=== PATIENT | male | born 1950 | race African-American/Black ===

== ENCOUNTER 2019-09-06 18:57 | Emergency (ER) | payer OTHER ==
[~2019-09-06] VITALS: Ht 154.9 cm; Wt 81.6 kg
[2019-09-06 19:00] VITALS: BP 175/100
[2019-09-06] MEDS ORDERED: MECLIZINE 25 MG TAB PO ONE (20:25)
[2019-09-06 22:54] VITALS: BP 176/88
== END 2019-09-06 22:54 | disposition home or self-care (01) ==
LOC: MED 18:57
DX: R42 Dizziness and giddiness (principal); I10 Essential (primary) hypertension; Z88.5 Allergy status to narcotic agent
CPT/HCPCS: 99283; J8597

== ENCOUNTER 2021-01-23 20:58 | Emergency (ER) | payer BC, OTHER, SELFPAY ==
[~2021-01-23] VITALS: Ht 180.3 cm; Wt 81.6 kg
[2021-01-23 21:10] VITALS: BP 134/93
--- NOTE | 2021-01-23 21:10 | NUR ---
TO BED AMBULATORY
--- NOTE | 2021-01-23 21:24 | NUR ---
Said examining patient.
--- NOTE | 2021-01-23 21:27 | NUR ---
SEE COMPLETE ASSESSMENT MED: ASA 81 MG; ATORVASTATIN 40 MG; CARVEDILOL 3.125; FUROSEMIDE 20 MG; ISOSORBIDE MONONITRATE 30MG; POTASSIUM CHLORIDE 20 MEQ; SACUBITRIL VALSATRAN 24MG-26MG; TICAGRELOR 90 MG ORAL; ZOLPIDEM 5 MG; hX; CHF; BILATERAL KNEE/ REPLACEMENT; STENTS 2020
[2021-01-23] MEDS ORDERED: FUROSEMIDE 40 MG/4 ML VIAL IVP SCH (21:30)
[2021-01-23 22:15] LABS: BASOPHILS # (AUTO) 0.2 K/uL (0.00-0.22); BASOPHILS % (AUTO) 3.5 % (0.0-2.0); EOSINOPHILS # (AUTO) 0.1 K/uL (0-0.4); EOSINOPHILS % (AUTO) 1.5 % (0.0-4.0); HEMATOCRIT 31.8 % (36-52); HEMOGLOBIN 10.3 g/dL (12.0-18.0); LYMPHOCYTES # (AUTO) 0.4 K/uL (2.0-11.5); LYMPHOCYTES % (AUTO) 9.4 % (20.5-51.1); MEAN CORPUSCULAR HEMOGLOBIN 27 pg (27-31); MEAN CORPUSCULAR HGB CONC 33 g/dL (33-37); MEAN CORPUSCULAR VOLUME 83.7 fL (80-94); MONOCYTES # (AUTO) 0.3 K/uL (0.8-1.0); MONOCYTES % (AUTO) 6.7 % (1.7-9.3); NEUTROPHILS # (AUTO) 3.6 K/uL (1.8-7.7); NEUTROPHILS % (AUTO) 78.9 % (42.2-75.2); PLATELET COUNT (AUTO) 213 K/uL (140-450); RED CELL DISTRIBUTION WIDTH 16.6 % (11.6-13.7); WHITE BLOOD COUNT (AUTO) 4.6 K/uL (4.8-10.8)
[2021-01-23 22:33] LABS: ALBUMIN 3.3 g/dL (3.4-5.0); ANION GAP 15.3 (8-16); ASPARTATE AMINOTRANSFERASE 22 U/L (15-37); CARBON DIOXIDE 25.8 mmol/L (21-32); CHLORIDE 107 mmol/L (98-107); CREATININE 1.8 mg/dL (0.6-1.3); GLUCOSE 112 mg/dL (74-106); POTASSIUM 4.1 mmol/L (3.5-5.1); SODIUM SERUM 144 mmol/L (136-145); TOTAL BILIRUBIN 1.2 mg/dL (0.0-1.0); UREA NITROGEN, BLOOD 27 mg/dL (7-18)
--- NOTE | 2021-01-23 22:40 | NUR ---
PATIENT SITTING IN BED QUIETLY. VSS. WILL CONTINUE TO MONITOR.
--- NOTE | 2021-01-23 22:40 | NUR ---
100 ML URINE OUTPUT
--- NOTE | 2021-01-23 22:51 | NUR ---
DR. SMITH AT BEDSIDE.
[2021-01-23 23:07] VITALS: BP 101/68
--- NOTE | 2021-01-23 23:07 | NUR ---
Patient discharged with v/s stable. Written and verbal after care instructions given and explained. Patient verbalized understanding. Ambulatory with steady gait. All questions addressed prior to discharge. Advised to follow up with PMD.
== END 2021-01-23 23:07 | disposition home or self-care (01) ==
LOC: MED 20:58
DX: I50.9 Heart failure, unspecified (principal); I13.0 Hypertensive heart and chronic kidney disease with heart failure and stage 1 through stage 4 chronic kidney disease, or unspecified chronic kidney disease; N18.9 Chronic kidney disease, unspecified; I50.89 Other heart failure; D64.9 Anemia, unspecified; E80.7 Disorder of bilirubin metabolism, unspecified; J90 Pleural effusion, not elsewhere classified; Z88.5 Allergy status to narcotic agent
CPT/HCPCS: 36415; 71045; 80053; 83880; 84484; 85025; 93005; 96374; 99285; J1940

== ENCOUNTER 2021-04-09 03:54 | Emergency (ER) | payer BC, OTHER ==
[~2021-04-09] VITALS: Ht 180.3 cm; Wt 81.6 kg
[2021-04-09 04:01] VITALS: BP 109/73
--- NOTE | 2021-04-09 04:02 | NUR ---
Dr. Haro examining patient.
[2021-04-09] MEDS ORDERED: ZOLP5TAB1 PO ×2 (04:09→04:10)
--- NOTE | 2021-04-09 04:20 | NUR ---
ERMD EVALUATED PATIENT PATIENT IN TRIAGE, NO NURSING INTERVENTIONS NEEDED AT THIS TIME.
[2021-04-09 04:35] VITALS: BP 109/73
--- NOTE | 2021-04-09 04:35 | NUR ---
Patient discharged with v/s stable. Written and verbal after care instructions given and explained. Patient alert, oriented and verbalized understanding of instructions. Ambulatory with steady gait. All questions addressed prior to discharge. ID band removed. Patient advised to follow up with PMD. Rx of PERFECTO given. Patient educated on indication of medication including possible reaction and side effects. Opportunity to ask questions provided and answered.
== END 2021-04-09 04:35 | disposition home or self-care (01) ==
LOC: MED 03:54
DX: G47.00 Insomnia, unspecified (principal); I10 Essential (primary) hypertension; Z79.899 Other long term (current) drug therapy; Z88.5 Allergy status to narcotic agent
CPT/HCPCS: 99283

== ENCOUNTER 2021-04-12 08:31 | Emergency (ER) | payer BC, OTHER ==
[~2021-04-12] VITALS: Ht 180.3 cm; Wt 76.2 kg
[~2021-04-12 08:31] MED LIST: ZOLP5TAB1 PO
[2021-04-12 08:32] VITALS: BP 90/59
[2021-04-12] MEDS ORDERED: CEPH-588 PO (09:59)
[2021-04-12] MEDS ORDERED: ACET-8386 PO (09:59)
[2021-04-12] MEDS ORDERED: PRED20TA5 PO (09:59)
[2021-04-12] MEDS ORDERED: IBUP-2213 PO (09:59)
[2021-04-12 10:21] VITALS: BP 90/59
== END 2021-04-12 10:22 | disposition home or self-care (01) ==
LOC: MED 08:31
DX: M13.871 Other specified arthritis, right ankle and foot (principal); L03.115 Cellulitis of right lower limb; I11.0 Hypertensive heart disease with heart failure; I50.9 Heart failure, unspecified; Z79.899 Other long term (current) drug therapy; Z88.5 Allergy status to narcotic agent
CPT/HCPCS: 73630; 99283

== ENCOUNTER 2021-10-30 12:40 | Emergency (ER) | payer BC, OTHER ==
[~2021-10-30] VITALS: Ht 180.3 cm; Wt 76.2 kg
[~2021-10-30 12:40] MED LIST changes: +ACET-8386 PO; +CEPH-588 PO; +IBUP-2213 PO; +PRED20TA5 PO
[2021-10-30 12:58] VITALS: BP 114/64
[2021-10-30] MEDS ORDERED: ACETAMINOPHEN 325 MG TAB PO ONE (13:50)
[2021-10-30] MEDS ORDERED: IBUP-2213 PO (14:54)
[2021-10-30] MEDS ORDERED: DIPH25TA53 PO (14:54)
[2021-10-30] MEDS ORDERED: ACET-8386 PO (14:54)
[2021-10-30] MEDS ORDERED: CEPH-588 PO (14:54)
[2021-10-30] MEDS ORDERED: ACETAMINOPHEN 325 MG TAB ONE (15:02)
[2021-10-30 15:21] VITALS: BP 107/65
--- NOTE | 2021-10-30 15:22 | NUR ---
Patient discharged with v/s stable. Written and verbal after care instructions given FOR HAND PAIN and explained. Patient alert, oriented and verbalized understanding of instructions. Ambulatory with steady gait. All questions addressed prior to discharge. ID band removed. Patient advised to follow up with PMD. Rx of KEFLEX, BENADRYL, AND IBUPROFEN given. Patient educated on indication of medication including possible reaction and side effects. Opportunity to ask questions provided and answered.
== END 2021-10-30 15:21 | disposition home or self-care (01) ==
LOC: MED 12:40
DX: R60.0 Localized edema (principal); M79.10 Myalgia, unspecified site; M79.601 Pain in right arm; I11.0 Hypertensive heart disease with heart failure; Z88.5 Allergy status to narcotic agent; Z79.899 Other long term (current) drug therapy
CPT/HCPCS: 73130; 99283

== ENCOUNTER 2021-12-18 10:08 | Observation (INO) | payer BC, OTHER, SELFPAY ==
[~2021-12-18] VITALS: Ht 180.3 cm; Wt 88.5 kg
[~2021-12-18 10:08] MED LIST changes: +DIPH25TA53 PO
[2021-12-18 10:15] VITALS: BP 108/78
[2021-12-18] MEDS ORDERED: PANTOPRAZOLE 40 MG INJ VIAL IVP ONE (10:25)
--- NOTE | 2021-12-18 10:25 | NUR ---
Dr. Solo is evaluating pt at bedside
--- NOTE | 2021-12-18 10:28 | NUR ---
71 y/o M BIB self from home c/o bloody stools during bowel movement this morning. Patient A&Ox4, ambulatory, states acute onset. Reports neither dark or bright red blood. Pt denies abdominal pain, chest pain, shortness of breath, fever, chills, constipation, diarrhea. States taking NSAIDs 3x in the past 5 days; reports prescribed Brilinta. Denies other medications prior to arrival. Last BM: today/watery. vehicle monitor technician in place. VSS. Bed locked in lowest position, side rails x 1. ERMD evaluating pt at bedside. PMH: HLD, CHF, HTN, 3 stents Meds: Brilinta, atorvastatin, carvedilol, lasix A: codeine Sx: 3 stents
--- NOTE | 2021-12-18 10:35 | NUR ---
CT consent form signed
--- NOTE | 2021-12-18 10:40 | NUR ---
Blood work collected, handed to CPT Olga at ER bedside
[2021-12-18] MEDS ORDERED: PANTOPRAZOLE 40 MG INJ VIAL ONE (10:54)
[2021-12-18 11:11] LABS: BASOPHILS % (AUTO) 0.5 % (0.0-2.0); EOSINOPHILS # (AUTO) 0.1 K/uL (0-0.4); EOSINOPHILS % (AUTO) 1.8 % (0.0-4.0); HEMATOCRIT 28.8 % (36-52); HEMOGLOBIN 9.5 g/dL (12.0-18.0); LYMPHOCYTES # (AUTO) 0.4 K/uL (2.0-11.5); LYMPHOCYTES % (AUTO) 10.1 % (20.5-51.1); MEAN CORPUSCULAR HEMOGLOBIN 27 pg (27-31); MEAN CORPUSCULAR HGB CONC 33 g/dL (33-37); MEAN CORPUSCULAR VOLUME 81.6 fL (80-94); MONOCYTES # (AUTO) 0.3 K/uL (0.8-1.0); MONOCYTES % (AUTO) 7.2 % (1.7-9.3); NEUTROPHILS # (AUTO) 3.4 K/uL (1.8-7.7); NEUTROPHILS % (AUTO) 80.4 % (42.2-75.2); PLATELET COUNT (AUTO) 245 K/uL (140-450); RED BLOOD CELL COUNT(AUTO) 3.53 MIL/uL (4.20-6.10); RED CELL DISTRIBUTION WIDTH 16.8 % (11.6-13.7); WHITE BLOOD COUNT (AUTO) 4.3 K/uL (4.8-10.8)
--- NOTE | 2021-12-18 13:48 | NUR ---
consent obtained for ct
[2021-12-18 14:00] LABS: ALBUMIN 2.5 g/dL (3.4-5.0); ANION GAP 13.7 (8-16); ASPARTATE AMINOTRANSFERASE 16 U/L (15-37); CARBON DIOXIDE 29.1 mmol/L (21-32); CHLORIDE 106 mmol/L (98-107); CREATININE 1.7 mg/dL (0.6-1.3); GLUCOSE 98 mg/dL (74-106); POTASSIUM 3.8 mmol/L (3.5-5.1); SODIUM SERUM 145 mmol/L (136-145); TOTAL BILIRUBIN 0.7 mg/dL (0.0-1.0); UREA NITROGEN, BLOOD 25 mg/dL (7-18)
[2021-12-18] MEDS ORDERED: FURO-570 PO (14:41)
[2021-12-18] MEDS ORDERED: APIX5TAB PO (14:41)
[2021-12-18] MEDS ORDERED: SACU1TAB PO (14:41)
[2021-12-18] MEDS ORDERED: TICA90TA PO (14:41)
[2021-12-18] MEDS ORDERED: CARV3.12 PO (14:41)
[2021-12-18] MEDS ORDERED: ALBU0.0912 INH (14:41)
[2021-12-18] MEDS ORDERED: FERR325E14 PO (14:41)
[2021-12-18] MEDS ORDERED: ATOR40TA PO (14:41)
[2021-12-18] MEDS ORDERED: POTA10TA70 PO (14:41)
[2021-12-18] MEDS ORDERED: NITR0.4T1 SL (14:41)
--- NOTE | 2021-12-18 14:42 | NUR ---
Patient disconnected from sonoscope operator and transported to CT by elian
--- NOTE | 2021-12-18 14:58 | NUR ---
Pt returned from CT and placed back onto monitor technician.
[2021-12-18] MEDS ORDERED: ACETAMINOPHEN 325 MG TAB PO PRN (15:15)
[2021-12-18] MEDS ORDERED: ONDANSETRON 4 MG/2 ML VIAL IVP PRN (15:15)
[2021-12-18] MEDS ORDERED: HYDROcodone/APAP 5/325 MG 1 TAB TAB PO PRN (15:15)
[2021-12-18] MEDS: NACL 0.9% 1,000 ML IV SCH (15:52)
--- NOTE | 2021-12-18 15:53 | NUR ---
Dr. Harrison at bedside
--- NOTE | 2021-12-18 15:59 | NUR ---
Report given to ROSA Bergeron.
--- NOTE | 2021-12-18 16:00 | NUR ---
Patient will be admitted to care of Dr. Harrison. Admited to Med/Surg. Will go to room 107B. Belongings list completed. Report to ROSA Bergeron.
[2021-12-18 16:10] VITALS: BP 109/64
--- NOTE | 2021-12-18 16:10 | NUR ---
ADMITTED PT FROM ED. PT ALERT, AWAKE. BREATHING SYMMETRICAL. WITH RAC 20G WITH NS AT 80CC/HR. DENIES PAIN OR DISCOMFORT AT THIS TIME. CALL LIGHT WITHIN REACH. ALL SAFETY MEASURES IN PLACE.
--- NOTE | 2021-12-18 17:10 | NUR ---
RECEIVED TELEPHONE ORDER WITH READ BACK FROM DR BERMAN. PT AWARE.
[2021-12-18] MEDS ORDERED: bisacodyL 5 MG TABEC PO ONE ×2 (17:15→21:30)
[2021-12-18] MEDS ORDERED: SUPREP BOWEL PREP KIT 354 ML SOLN.RECON PO ONE ×2 (17:30→22:00)
--- NOTE | 2021-12-18 18:03 | NUR ---
PT SATING AT 90% ON ROOM AIR, BREATHING UNLABORED. PT STATED HE WAS ON O2 VIA NC AT HOME AT 2L. DR MORTON MADE AWARE.
--- NOTE | 2021-12-18 19:17 | NUR ---
ENDORSED PT TO SUPERVISOR SCREEN MAKING NURSE. RN ALSO MADE AWARE PT IS ON COLONIC CLEANSING, TO GIVE 2L WATER OVER 4HRS AFTER TAKING SUPREP PER DR. BERMAN'S INSTRUCTIONS AND THAT PT IS NPO AFTER 0400. PT IN STABLE CONDITION.
--- NOTE | 2021-12-18 19:30 | NUR ---
RECEIVED BEDSIDE REPORT FROM DAY SHIFT RN FOR CONTINUITY OF CARE. PT IS AWAKE ON RA. PT IS NOT IN ANY DISTRESS. BREATHING RHYTHMIC AND UNLABORED. IVF RUNNING MD ORDER. CALL LIGHT WITHIN REACH. ALL SAFETY MEASURES TAKEN. WILL CONTINUE TO MONITOR THE PT.
[2021-12-18 20:00] VITALS: BP 123/76
[2021-12-18] MEDS: PANTOPRAZOLE 40 MG INJ VIAL IVP SCH (21:27)
--- NOTE | 2021-12-18 21:30 | NUR ---
PT REFUSED BISACODYL. ALL OTHER MEDICATIONS GIVEN PER MD ORDER. NO ADVERSE EFFECT NOTED. WILL CONTINUE TO MONITOR THE PT.
--- NOTE | 2021-12-19 01:00 | NUR ---
PT IS SLEEPING IN BED COMFORTABLY. PT IS ON NC 2L. IVF RUNNING PER MD ORDER. NOT IN ANY DISTRESS. BREATHING RHYTHMIC AND UNLABORED. CALL LIGHT WITHIN REACH. ALL SAFETY MEASURES TAKEN. WILL CONTINUE TO MONITOR THE PT.
[2021-12-19] MEDS: NACL 0.9% 1,000 ML IV SCH (03:45)
[2021-12-19 04:00] VITALS: BP 116/77
[2021-12-19] MEDS ORDERED: SODIUM PHOSPHATE 118 ML ENEM RC ONE (06:00)
[2021-12-19 07:09] LABS: ALBUMIN 2.2 g/dL (3.4-5.0); ANION GAP 13.4 (8-16); ASPARTATE AMINOTRANSFERASE 17 U/L (15-37); CARBON DIOXIDE 27.3 mmol/L (21-32); CHLORIDE 107 mmol/L (98-107); CREATININE 1.5 mg/dL (0.6-1.3); GLUCOSE 95 mg/dL (74-106); POTASSIUM 3.7 mmol/L (3.5-5.1); SODIUM SERUM 144 mmol/L (136-145); TOTAL BILIRUBIN 0.8 mg/dL (0.0-1.0); UREA NITROGEN, BLOOD 22 mg/dL (7-18)
--- NOTE | 2021-12-19 07:30 | NUR ---
ENDORSED PT TO DAY SHIFT RN FOR CONTINUITY OF CARE. PT IS STABLE.
--- NOTE | 2021-12-19 07:36 | NUR ---
PATIENT HAS BEEN SCREENED AND CATEGORIZED MODERATE NUTRITION RISK. PATIENT WILL BE SEEN WITHIN 3-5 DAYS OF ADMISSION. 12/19/21-12/23/[address]
[2021-12-19] MEDS ORDERED: fentaNYL citrate 0.05 MG/ML VIAL ONE (07:43)
[2021-12-19] MEDS ORDERED: MIDAZOLAM 5 MG/5 ML VIAL ONE (07:44)
[2021-12-19] MEDS ORDERED: SIMETHICONE 40 MG/0.6 ML ONE ×2 (07:44→07:45)
[2021-12-19 08:01] VITALS: BP 118/74
[2021-12-19] MEDS: PANTOPRAZOLE 40 MG INJ VIAL IVP SCH ×2 (08:18→08:38)
[2021-12-19 08:58] LABS: BASOPHILS # (AUTO) 0.1 K/uL (0.00-0.22); BASOPHILS % (AUTO) 0.9 % (0.0-2.0); EOSINOPHILS # (AUTO) 0.1 K/uL (0-0.4); EOSINOPHILS % (AUTO) 1.1 % (0.0-4.0); HEMATOCRIT 27.2 % (36-52); HEMOGLOBIN 8.7 g/dL (12.0-18.0); LYMPHOCYTES # (AUTO) 0.6 K/uL (2.0-11.5); LYMPHOCYTES % (AUTO) 10.4 % (20.5-51.1); MEAN CORPUSCULAR HEMOGLOBIN 27 pg (27-31); MEAN CORPUSCULAR HGB CONC 32 g/dL (33-37); MEAN CORPUSCULAR VOLUME 82.8 fL (80-94); MONOCYTES # (AUTO) 0.5 K/uL (0.8-1.0); MONOCYTES % (AUTO) 9.8 % (1.7-9.3); NEUTROPHILS # (AUTO) 4.4 K/uL (1.8-7.7); NEUTROPHILS % (AUTO) 77.8 % (42.2-75.2); PLATELET COUNT (AUTO) 214 K/uL (140-450); RED BLOOD CELL COUNT(AUTO) 3.28 MIL/uL (4.20-6.10); RED CELL DISTRIBUTION WIDTH 17.1 % (11.6-13.7); WHITE BLOOD COUNT (AUTO) 5.6 K/uL (4.8-10.8)
[2021-12-19] MEDS ORDERED: MIDAZOLAM 2 MG/2 ML VIAL IVP ONE (09:55)
[2021-12-19] MEDS ORDERED: fentaNYL citrate 0.05 MG/ML VIAL IVP ONE (09:55)
[2021-12-19] MEDS ORDERED: VITA1TAB44 PO (15:34)
[2021-12-19] MEDS ORDERED: PANT40EC56 PO (15:34)
[2021-12-19] MEDS ORDERED: SUCR1TAB35 PO (15:35)
[2021-12-19] MEDS ORDERED: SUCR1TAB56 PO (15:35)
[2021-12-19 15:45] VITALS: BP 118/74
--- NOTE | 2021-12-19 16:02 | NUR ---
PT DISCHARGED, IN STABLE CONDITION, VSS, IV DCED, QUESTIONS/CONCERNS ANSWERED.
== END 2021-12-19 17:14 | disposition home or self-care (01) ==
LOC: MED 10:08 → MTU 15:17
PROVIDERS: ADMIT Student in an Organized Health Care Education/Training Program; ATTEND Student in an Organized Health Care Education/Training Program
DX: K62.9 Disease of anus and rectum, unspecified (principal); Z20.822 Contact with and (suspected) exposure to COVID-19; D62 Acute posthemorrhagic anemia; K29.70 Gastritis, unspecified, without bleeding; K62.5 Hemorrhage of anus and rectum; K62.6 Ulcer of anus and rectum; K63.5 Polyp of colon; K64.0 First degree hemorrhoids; I11.0 Hypertensive heart disease with heart failure; I50.9 Heart failure, unspecified; E78.5 Hyperlipidemia, unspecified; I48.91 Unspecified atrial fibrillation; Z79.01 Long term (current) use of anticoagulants; Z79.899 Other long term (current) drug therapy
CPT/HCPCS: 36415; 43235; 45380; 71045; 74177; 80053; 85025; 85730; 86886; 86900; 86901; 87081; 87426; 88305; 93005; 96374; 96376; 99285; C9113; G0378; J2250; J3010; J7030; Q9967

== ENCOUNTER 2021-12-25 13:46 | Emergency (ER) | payer BC, OTHER ==
[~2021-12-25] VITALS: Ht 172.7 cm; Wt 74.8 kg
[~2021-12-25 13:46] MED LIST changes: -ACET-8386 PO; +ALBU0.0912 INH; +APIX5TAB PO; +ATOR40TA PO; +CARV3.12 PO; -CEPH-588 PO; -DIPH25TA53 PO; +FERR325E14 PO; +FURO-570 PO; -IBUP-2213 PO; +NITR0.4T1 SL; +PANT40EC56 PO; +POTA10TA70 PO; -PRED20TA5 PO; +SACU1TAB PO; +SUCR1TAB35 PO; +SUCR1TAB56 PO; +TICA90TA PO; +VITA1TAB44 PO; -ZOLP5TAB1 PO
[2021-12-25 14:18] VITALS: BP 105/68
--- NOTE | 2021-12-25 14:30 | NUR ---
Pt ambulated to bed 12
--- NOTE | 2021-12-25 14:35 | NUR ---
71 Y/O Male BIB SELF C/O ARM/LEG GENERAL WEAKNESS AND PAIN RATED 8/10. HE DOES NOT RECALL AN INJURY. PT IS S/P COLONOSCOPY 3 DAYS AGO. PT.DENIES SOB, VENEGAS, FEVER/CHILLS. PmHx: CHF, HTN, stents, CAD. Allergies: Codeine
--- NOTE | 2021-12-25 14:42 | NUR ---
ORAL TEMP TAKEN BEDSIDE - 98.2, PT PROVIDED WITH WARM BLANKET
[2021-12-25] MEDS ORDERED: NACL 0.9% 500 ML IV SCH (14:55)
[2021-12-25] MEDS ORDERED: ACETAMINOPHEN EXTRA STRENGTH 500 MG TAB PO ONE (14:55)
[2021-12-25] MEDS ORDERED: ONDANSETRON 4 MG/2 ML VIAL IVP ONE (15:00)
--- NOTE | 2021-12-25 15:03 | NUR ---
PT REFUSING XRAY AT THIS TIME.
--- NOTE | 2021-12-25 15:06 | NUR ---
SPOKE WITH PATIENT AND HE IS REFUSING ALL NURSING CARE AND IS REQUESTING ONLY PAIN MEDICATIONS. PER PATIENT "HE WAS SEEN HERE X2 DAYS AGO AND DOES NOT NEED ANYTHING OTHER THAN PAIN MEDICATIONS."
[2021-12-25] MEDS ORDERED: NAPR-1704 PO (15:40)
[2021-12-25] MEDS ORDERED: EMLAC TP (15:40)
[2021-12-25 15:47] VITALS: BP 105/68
--- NOTE | 2021-12-25 15:49 | NUR ---
Patient discharged with v/s stable. Written and verbal after care instructions given and explained. Patient alert, oriented and verbalized understanding of instructions. Ambulatory with steady gait. All questions addressed prior to discharge. ID band removed. Patient advised to follow up with PMD. Rx of LIDOCAINE,NAPROXEN given. Patient educated on indication of medication including possible reaction and side effects. Opportunity to ask questions provided and answered.
== END 2021-12-25 15:47 | disposition home or self-care (01) ==
LOC: MED 13:46
DX: M25.431 Effusion, right wrist (principal); M25.432 Effusion, left wrist; Z88.5 Allergy status to narcotic agent; Z79.899 Other long term (current) drug therapy; Z98.890 Other specified postprocedural states
CPT/HCPCS: 99283; J2405